=== PATIENT | male | born 1990 | race Caucasian/White ===

== ENCOUNTER 2022-04-04 09:13 | Day surgery (SDC) | payer OTHER, SELFPAY ==
--- OUTSIDE RECORDS SUMMARY | 2022-03-24 09:30 | XMS_ITS | Continuity of Care Document ---
:1990 Author Care Team Providers Name Role Phone SEEN Primary Care Physician Unavailable MD Miguelina Lin Attending Physician Allergies, Adverse Reactions, Alerts No known allergies Social History Smoking Status Status Start Date End Date Date of Observat ion Tobacco smoking March 05, 2022 1 :23pm consumption unknown (finding) Additional Data Assigned Sex Male Problems Active Problems Medical Problem Onset Date Status Chronic sinusitis Active Nasal congestion Active Follow up Active Medications No known medications Procedures Procedure Date Performed Status CT MAXILLOFACIAL W/O DYE March 05, [address] of maxillofacial area without March 05, 2022 complet ed contrast Relevant Diagnostic Tests and/or Laboratory Data Diagnostic Imaging Reports Report Dictated Date/Time Dictated By Status March 05, 2022 8:51am [place] [address] ~DEPARTMENT OF DI AGNOSTIC IMAGING~ Patient: GEORGINA MONSON MR #: [id number] : 1990 Age: 31 Sex: M Ordering MD: Ezekiel Lin MD Rm/Bed: Loc: RAD Report #: [id number] CT/SIN USES/MAXILOFAC W/O CONTRAST Date: 03/05/22 Signed For Patients: As a result of the entury Cures Act, medical imaging exams and procedure reports are release d immediately into your electronic medical record. You may view this repo rt before your referring provider. If you have questions, please contact y our health care provider. Indication: Sinusitis Technique: Performed without IV contrast Comparison: None available Findings: Frontal sinuses: Mild mucosal thickenin g inferior frontal sinuses. Ethmoid sinuses: Clear. Maxillary sinuses: 1.6 cm mucous retent ion cyst inferior left maxillary sinus with mild adjacent mucosal thicke charis. Mucosal thickening also within the inferior right maxillary sinus. The maxillary sinus drainage pathways are patent on both sides. Sphenoid sinuses: Clear, including both sphenoethmoidal recesses. Nasal Cavity: Rightward curvature nasal septum. Karo bullosa left middle turbinate. No polyps. No TMJ abnormalities identified. The vi sualized portions of the orbits, intracranial contents and upper soft ti ssue neck are grossly negative. Impression: 1. Bilateral maxillary and frontal sinu s disease. 2. Rightward curvature of the nasal sep sharon. Please note that all CT scans at this [facility] use dose modulation, iterative reconstruction, and/or weight -based dosing when appropriate to reduce radiation dose to as low as reas onably achievable. Dictated by Lowell Garcia MD @ 03/05/2022 11:54:15 AM (Electronically Signed) Dictated By: LOWELL GARCIA MD Signed By: LOWELL GARCIA MD Insurance Providers Guarantor Georgina Monson Address [address] [place] [address] [place] [address] Contact Info. Home Phone: Payer Policy Id Coverage Id Subscriber's Subscriber Id Effective E xpiration Name Date Date [facility] [id number] Georgina Monson [id number] [employer] Encounters Encounter Location(s) Arrival/Admit Date Discharge/Depart Date Provider(s) Registered Clinics March 05, 2022 [facility] 9:00am Ezekiel Mcintyre MD Office Visit ENT @ [place] March 05, 2022 [facility] 9:00am Ezekiel Mcintyre MD Registered [place] [facility] 05[facility] Ezekiel Mcintyre MD Office Visit ENT @ [place] February 18, 2022 [facility] 3:15pm Ezekiel Mcintyre MD Recent Diagnosis Onset Date Follow up Nasal congestion Nasal congestion Chronic sinusitis Chronic sinusitis Assessments Diagnosis Onset Date Resolution Status Follow up Nasal congestion Nasal congestion Chronic sinusitis Chronic sinusitis Plan of Treatment Instructions from visit on: 03/05/22 Please follow the provider's instructions as discussed during your visit. Instructions from visit on: 02/18/22 Please follow the provider's instructions as discussed during your visit. Future Tests Future scheduled test information is unavailable Pending Tests Pending diagnostic test information is unavailable Future Visits Future appointment information is unavailable Referrals to Other Providers Referral information is unavailable Future Procedures Future procedure information is unavailable Future Medications Future medication information is unavailable Patient Instructions Patient instructions are unavailable Goals Ambulatory Goals Reach or maintain optimal well being. Reach or maintain optimal well being.
[2022-04-04] VITALS (11 sets, daily range): BP systolic 95–122; BP diastolic 54–78; PULSE 62–87; RESP 16–20; TEMP 36.2–36.4; O2SAT 94–100; BMI 363.7
[2022-04-04] MEDS: LACTATED RINGERS 1000 ML 1,000 ML 100 ML IV (09:50)
[2022-04-04] MEDS: SODIUM CHLORIDE 0.9 % (FLUSH) 10 ML SYRINGE IVF (09:50)
[2022-04-04] MEDS: OXYMETAZOLINE 0.05% NASAL SPRAY 2 SPRAY NOSTRIL-B (10:00)
[2022-04-04] MEDS: BUPIVACAINE 0.5%/EPINEPHRINE 0.9 MG (30.9 ML) INJECTION (10:33)
[2022-04-04] MEDS: COCAINE HCL 4 % 4 ML SOLUTION NOSTRIL-B (10:33)
--- NOTE | 2022-04-04 10:50 | SUR.OPER ---
PATIENT QUESTIONS ANSWERED SATISFACTORILY PREOPERATIVELY. PATIENT BROUGHT TO OR #2 PER CART.Patient positioned supine on OR #1 bed. ? Perioperative team tucked arms bilaterally at patient side in a neutral position with drawsheet. ?Final approval of positioning by surgeon.
--- NOTE | 2022-04-04 11:07 | P.ENTPROC_ITS ---
Procedure Note Date of procedure: 04/04/22 Procedure: preop diagnosis septal deviation nasal obstruction inferior turbinate hypertrophy rhinogenic headache and left middle turbinate sebas bullosa. Postoperative diagnosis same. Procedure septoplasty, submucous partial resection inferior turbinates, endoscopic partial resection left middle turbinate sebas bullosa Under general endotracheal anesthesia patient was prepped and draped in usual fashion and nose injected and decongested. A right hemitransfixion incision was made left anterior and posterior tunnels were created. A vertical incision was made the cartilage from the bone the. The posterior septal deflection was resected a large piece was trimmed and returned to the posterior intraseptal space anteriorly the septum was simply moved to midline. The hemitransfixion was closed with 2 4-0 chromic sutures. A stab incision was made in the anterior head of the right inferior turbinate a tunnel created with a [place] dissector. The sebas bone was outfractured. A conservative anterior submucous resection was performed with Nelia forceps. The Coblation Wand was then used for hemostasis and to cauterize the inferior 10% more posteriorly. This was repeated on the left side in identical fashion. The remainder procedure was done with the available assistance of a 0 degree endoscope. An incision was made in the inferolateral portion of the left middle turbinate the incision was completed with the turbinate scissors and the Consul bone that and the sebas was then crushed with a [place] forceps. Silastic stents were secured with 3-0 nylon. A Merocel pack was trimmed lengthwise, coated in Bactroban, and placed in mid nasal cavity bilaterally. The patient opted well was taken recovery in satisfactory condition blood loss during procedure was less than 50 mL Surgeon: Ezekiel Lin MD
[2022-04-04] MEDS: OXYCODONE 5 MG TABLET PO (11:52)
--- NOTE | 2022-04-04 12:21 | SUR.PHASEII ---
Nasel dressing changed with moderate bloody drainage soaked through dressing. Patient and shown how to change dressing.
[2022-04-04] MEDS: ACETAMINOPHEN 325 MG TABLET PO (12:46)
--- NOTE | 2022-04-04 12:51 | W.ANESCHARGE ---
Anesthesia Charges Start Date/Time Anesthesia Start Date: 04/04/22 Anesthesia Start Time: 10:20 Stop Date/Time Anesthesia Stop Date: 04/04/22 Anesthesia Stop Time: 11:05 Summary Emergency: No
--- NOTE | 2022-04-04 12:53 | W.ANESCHARGE ---
Anesthesia Charges Start Date/Time Anesthesia Start Date: 04/04/22 Anesthesia Start Time: 10:20 Stop Date/Time Anesthesia Stop Date: 04/04/22 Anesthesia Stop Time: 11:05 Summary Emergency: No
== END 2022-04-04 13:00 | disposition home or self-care (01) ==
PROVIDERS: Visit Provider Otolaryngology
PROC: (CPT 31231; principal; 2022-04-04 11:00)
DX: J34.2 Deviated nasal septum (principal); J34.3 Hypertrophy of nasal turbinates; R51.9 Headache, unspecified; J34.89 Other specified disorders of nose and nasal sinuses
CPT/HCPCS: 30520; 30140; 31240; 160; A9270; J0330; J1100; J2250; J2405; J2704; J3010; J7120